=== PATIENT | female | born 1985 | race Caucasian/White ===

== ENCOUNTER 2022-05-21 01:55 | Inpatient (IN) | payer OTHER ==
[2022-05-21] VITALS (25 sets, daily range): BP systolic 80–131; BP diastolic 46–72; PULSE 73–108; TEMP 97.4–98.2
[~2022-05-21] VITALS: Ht 157.5 cm; Wt 81.4 kg
--- NOTE | 2022-05-21 02:00 | NUR ---
0200- PT PRESENTS TO LDR COMPLAINING OF CONTRACTIONS, TO LR5 PER WHEELCHAIR, CHANGED INTO GOWN. 0207- EFM X2 APPLIED. PT DENIES LEAKING FLUID OR VAGINAL BLEEDING. STATES SHE IS FEELING HER BABY MOVE AND HAS BEEN HAVING STRONG CONTRACTIONS SINCE 114. PLAN OF CARE FOR LABOR CHECK DISCUSSED AND QUESTIONS ANSWERED. 0212- SVE BY THIS NURSE 5- WITH BULGING BAG OF SUN. 0220- NURSING ADMISSION HISTORY AND ASSESSMENTS COMPLETE. 0230- PT REPORTS SHE IS VERY UNCOMFORTABLE AND WOULD LIKE AN EPIDURAL. WILL CALL DR. 0234- DR ANDRADE CALLED CHARTED, ORDERS RECEIVED. 0235- PT UPDATED ON PLAN OF CARE FOR ADMISSION. SHE STATES SHE IS FEELING SOME PRESSURE AT THIS TIME. SVE BY THIS NURSE WITH BULGING BAG. 0245- IV START TO LEFT HAND CHARTED. BLOOD DRAWN FOR LAB. LR INFUSING FOR EPIDURAL. KATILYNN AGUIRRE CALLED FOR EPIDURAL PLACEMENT. 0300- CONSENTS SIGNED. 0314- KAITLYNN AGUIRRE AT BEDSIDE FOR EPIDURAL PLACEMENT. DISCUSSES RISKS AND BENEFITS AND GETS VERBAL CONSENT FOR PLACEMENT. PT POSITIONED SITTING UP ON EDGE OF BED. 0326- EPIDURAL SINGLE SHOT. 0328- EPIDURAL TEST DOSE. 0330- EPIDURAL PROCEDURE COMPLETE. PT TOLERATED WELL. POSITIONED IN LEFT LATERAL AND MONITORS ADJUSTED. 0337- BLOOD PRESSURE 82/53. PT DENIES SYMPTOMS. WILL RE-EVALUATE. 0342- BLOOD PRESSURE CUFF UNABLE TO OBTAIN BLOOD PRESSURE DUE TO PT SHAKING. PT STILL DENIES SYMPTOMS. NURSE WILL CONTINUE TO ATTEMPT BLOOD PRESSURE. 0350- KAITLYNN AGUIRRE AT BEDSIDE AND ASSISTS WITH HOLDING PT ARM TO ATTEMPT BLOOD PRESSURE. MACHINE STILL UNABLE TO OBTAIN BLOOD PRESSURE DUE TO SHAKING DESPITE REPEATED ATTEMPTS AND REPOSITIONING. PT STILL DENIES ANY SYMPTOMS. PULSE PALPATED STRONG IN RIGHT RADIUS. LR INFUSING. 0401- KAITLYNN SURVEILLANCE DUAL RATE OFFICER MOVES BLOOD PRESSURE CUFF TO PT FOREARM AND HOLDS ARM STILL TO OBTAIN BLOOD PRESSURE READING OF 74/43. PT IS STILL SHAKING AND DENIES SYMPTOMS. NURSE TAKES A MANUAL BLOOD PRESSURE OF 84/46. PT STATES HER BLOOD PRESSURES NORMALLY RUN LOW AND STATES SHE IS FEELING FINE. FHT'S WITHOUT DECELS. WILL CONTINUE TO MONITOR. LR CONTINUES INFUSING. 0405- SVE BY THIS NURSE WITH BULGING BAG. ANESTHESIA, CHARGE NURSE, AND NURSERY UPDATED. 0418- MANUAL BLOOD PRESSURE 80/52. PT IS STILL SHAKING AND DENIES ANY SYMPTOMS. LR INFUSING, PULSE OX PLACED. 0420- TUMS GIVEN FOR HEARTBURN.
[2022-05-21] MEDS ORDERED: QUALITY CHOICE1 TA7 (02:27)
[2022-05-21 02:59] LABS: BASO % 0.2 % (0.0-2.0); EOS # 0.1 K/mm3 (0.0-0.7); EOS % 1.1 % (0.0-4.0); GRAN # 6.2 K/mm3 (1.4-6.5); GRAN % 62.5 % (42.2-75.2); HEMATOCRIT 33.2 % (37.0-47.0); HEMOGLOBIN 11.5 g/dl (12.5-16.0); LYMPH # 2.8 K/mm3 (1.2-3.4); LYMPH % 28.2 % (20.0-51.0); MEAN CELL VOLUME 86 fl (80.0-100.0); MEAN CORPUSCULAR HEMOGLOBIN 30 pg (27-31); MEAN CORPUSCULAR HGB CONC 35 g/dl (33.0-37.0); MONO # 0.7 K/mm3 (0.1-0.6); MONO % 7.2 % (1.7-9.3); PLATELET COUNT 206 K/mm3 (130-400); RED BLOOD COUNT 3.85 M/mm3 (4.10-5.30); REDCELL DISTRIBUTION WIDTH-CV 12.5 % (11.5-14.5)
--- NOTE | 2022-05-21 04:45 | NUR ---
0445- MANUAL BLOOD PRESSURE 90/48, PT ASYMPTOMATIC. 0455- MANUAL BLOOD PRESSURE 80/46, PT ASYMPTOMATIC. 0458- EPHEDRINE GIVEN. 0503- MANUAL BLOOD PRESSURE 90/56, PT ASYMPTOMATIC. 0510- MANUAL BLOOD PRESSURE 92/56, PT ASYMPTOMATIC. 0515- DYNAMAP BLOOD PRESSURE CUFF TRIED. 84/48, PT ASYMPTOMATIC. 0530- BLOOD PRESSURE 85/51, PT ASYMPTOMATIC. 0533- EPHEDRINE GIVEN. 0600- STRAIGHT CATH FOR 50ML DARK YELLOW URINE. SVE BY THIS NURSE WITH BULGING BAG. PT TURNED TO RIGHT WEDGE AND MONITORS ADJUSTED. 0605- DR ANDRADE CALLED AND UPDATED CHARTED, STATES HE WILL COME IN.
--- NOTE | 2022-05-21 07:09 | NUR ---
0652- Dr Boyle and this RN at bedside. SVE by , complete. Pt and room prepped for delivery. Nakul, Nursery RN called to bedside. 0658- Pt begins pushing with UCs. MD remains at bedside, evaluating FHR tracing. 0709- of viable male . Cord clamped and cut. Infant to mother's abd, tended to by Nakul, RN. Cord blood obtained for hospital and cord blood collection kit provided by Pt. 0715- Spont. delivery of placenta. Fundus massaged to firm by . Repair by . Pericare completed. Clean chux and ice pack under Pt. Bleeding WNL. [id number] with mother.
--- NOTE | 2022-05-21 13:00 | NUR ---
REPORT TAKEN AND CARE ASSUMED.
[2022-05-22 01:00] VITALS: BP 102/61; PULSE 84; TEMP 98
[2022-05-22 04:50] VITALS: BP 96/69; PULSE 68; TEMP 97.7
[2022-05-22 07:00] VITALS: BP 100/61; PULSE 77; TEMP 97.5
[2022-05-22] MEDS ORDERED: IBU800 M1 PO (13:40)
[2022-05-22 16:05] VITALS: BP 108/71; PULSE 78; TEMP 97.4
--- NOTE | 2022-05-22 18:30 | NUR ---
Report recieved. Resting in bed at this time. Whiteboard updated and POC reviewed. Questions invited and declined.
[2022-05-22 20:00] VITALS: BP 103/73; PULSE 73; TEMP 98
[2022-05-23 09:00] VITALS: BP 98/69; PULSE 84; TEMP 97.9
--- NOTE | 2022-05-23 09:35 | NUR ---
Initial visit; Patient thanked Scarfer Operator for offering congratulations and God's blessings for the of her son. Scarfer Operator thanked mom for choosing [place].
--- NOTE | 2022-05-23 15:30 | NUR ---
DISCHARGE INSTRUCTIONS GIVEN, PT VERBALIZES UNDERSTANDING. PT IS AMBULATORY TO PARKING LOT WITH THIS RN.
== END 2022-05-23 15:30 | disposition home or self-care (01) | DRG 807 ==
LOC: LDRO 01:55 → LDR 02:51 → OB 02:51
PROVIDERS: Obstetrics & Gynecology; ADMIT Obstetrics & Gynecology
PROC: 10E0XZZ Delivery of Products of Conception, External Approach (ICD-10-PCS; principal; 2022-05-21)
PROC: 0KQM0ZZ Repair Perineum Muscle, Open Approach (ICD-10-PCS; 2022-05-21)
DX: O70.1 Second degree perineal laceration during delivery (principal); Z37.0 Single live birth; O69.81X0 Labor and delivery complicated by cord around neck, without compression, not applicable or unspecified; Z3A.39 39 weeks gestation of pregnancy
CPT/HCPCS: J2590; J2795; J7120